=== PATIENT | male | born 1980 | race Caucasian/White ===

== ENCOUNTER 2022-12-09 18:34 | Emergency (ER) | payer MEDICARE, MEDICAID ==
[~2022-12-09] VITALS: Ht 172.7 cm; Wt 83.0 kg
[2022-12-09 19:19] VITALS: BP 121/79
[2022-12-09] MEDS ORDERED: LORazepam 1 MG tablet PO ONE (21:05)
== END 2022-12-09 21:42 | disposition home or self-care (01) ==
LOC: ER 18:35
DX: F41.9 Anxiety disorder, unspecified (principal); Z76.0 Encounter for issue of repeat prescription
CPT/HCPCS: 99283

== ENCOUNTER → 2022-12-15 | Emergency (ER) | payer MEDICARE, MEDICAID ==
[~2022-12-15] VITALS: Ht 172.7 cm; Wt 70.0 kg
[~2022-12-15] MED LIST: ARIP15TA3 PO; TIZA2CAP PO
[2022-12-15 18:43] VITALS: BP 124/73
== END | disposition home or self-care (01) ==
LOC: ER 18:20
DX: F41.9 Anxiety disorder, unspecified (principal); Z76.0 Encounter for issue of repeat prescription
CPT/HCPCS: 99281; J7030

== ENCOUNTER 2022-12-17 21:55 | Emergency (ER) | payer MEDICARE, MEDICAID | END 2022-12-17 23:35 | disposition left against medical advice (07) | LOC: ER 21:57 | DX: Z00.8 Encounter for other general examination (principal); Z53.21 Procedure and treatment not carried out due to patient leaving prior to being seen by health care provider ==